=== PATIENT | female | born 1985 | race American Indian/Alaskan Native ===

== ENCOUNTER 2016-10-23 11:30 | Emergency (ER) | payer OTHER ==
[2016-10-23 11:42] VITALS: RESP 18; TEMP 97.9
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
[2016-10-23 15:05] VITALS: BP 119/72; PULSE 71
[2016-10-23 15:36] VITALS: O2SAT 99
== END 2016-10-23 15:10 | disposition home or self-care (01) ==
LOC: C.ER 11:30
DX: S39.012A Strain of muscle, fascia and tendon of lower back, initial encounter (principal); V89.2XXA Person injured in unspecified motor-vehicle accident, traffic, initial encounter